=== PATIENT | male | born 1950 | race Caucasian/White ===

== ENCOUNTER → 2018-01-02 | Outpatient (CLI) | payer OTHER ==
[~2018-01-02] MED LIST: ASPIRIN325 MG PO; CITALOPRAM HBR20 MG PO; GABAPENTIN300 MG PO; LISINOPRIL10 MG PO; METOPROLOL SUCC25 MG PO; NITROSTAT0.4 MG SL; PRAVASTATIN SOD40 MG PO
== END | disposition home or self-care (01) ==
LOC: CDC 11:15
DX: Z01.810 Encounter for preprocedural cardiovascular examination (principal); N20.0 Calculus of kidney; I49.3 Ventricular premature depolarization; R94.31 Abnormal electrocardiogram [ECG] [EKG]
CPT/HCPCS: 93000